=== PATIENT | male | born 1945 | race Caucasian/White ===

== ENCOUNTER → 2020-09-27 | Outpatient (CLI) | payer OTHER ==
[~2020-09-27] MED LIST: ACET325T9 PO; ASCO100T4 PO; ASPI-424 PO; ATOR40TA59 PO; BISA10SU55 RC; CHOL10004 PO; COLL30OI TP; CYAN100031 PO; DONE10TA61 PO; ESCITALOPRAM OX10 MG PO; FERR325T14 PO; FOLI0.8T32 PO; HUM100IN3 SQ; HYOS0.12 PO; INSU100I17 SQ; MELA3TAB30 PO; MEMA10TA PO; MENT3.5O TP; MIRT15TA90 PO; MULT-121 PO; PANT40TA77 PO; SENN1TAB62 PO; [UNRECOGNIZED DRUG - CODE] TP
[2020-10-10 12:00] VITALS: BP 97/60
== END | disposition home or self-care (01) ==
LOC: PMGWOUND 12:30 → EDSTATUS 12:39
PROVIDERS: ATTEND Preventive Medicine Undersea and Hyperbaric Medicine
DX: E11.622 Type 2 diabetes mellitus with other skin ulcer (principal); L89.153 Pressure ulcer of sacral region, stage 3; L98.492 Non-pressure chronic ulcer of skin of other sites with fat layer exposed; H91.90 Unspecified hearing loss, unspecified ear; F41.9 Anxiety disorder, unspecified; R26.9 Unspecified abnormalities of gait and mobility; E11.40 Type 2 diabetes mellitus with diabetic neuropathy, unspecified; E11.610 Type 2 diabetes mellitus with diabetic neuropathic arthropathy; E78.5 Hyperlipidemia, unspecified; F02.80 Dementia in other diseases classified elsewhere, unspecified severity, without behavioral disturbance, psychotic disturbance, mood disturbance, and anxiety; G30.9 Alzheimer's disease, unspecified; K21.9 Gastro-esophageal reflux disease without esophagitis; M19.90 Unspecified osteoarthritis, unspecified site; I12.9 Hypertensive chronic kidney disease with stage 1 through stage 4 chronic kidney disease, or unspecified chronic kidney disease; E11.22 Type 2 diabetes mellitus with diabetic chronic kidney disease; N18.30 Chronic kidney disease, stage 3 unspecified; Z86.73 Personal history of transient ischemic attack (TIA), and cerebral infarction without residual deficits; Z79.82 Long term (current) use of aspirin; Z79.4 Long term (current) use of insulin; Z74.09 Other reduced mobility; Z89.431 Acquired absence of right foot; Z89.422 Acquired absence of other left toe(s); Z87.891 Personal history of nicotine dependence; Z88.8 Allergy status to other drugs, medicaments and biological substances
CPT/HCPCS: 11042; 99205; 99215; G0463